=== PATIENT | female | born 1990 | race Caucasian/White ===

== ENCOUNTER 2016-07-27 14:03 | Emergency (ER) | payer SELFPAY ==
--- NOTE | 2016-07-27 16:12 | UC ---
Complaint Female HPI - HPI Summary HPI Summary: patient states that thursday she worked 12 straight hours and did not urinate the entire time, when she got home she voided and there was alot of blood. since then she has had burning with urination. sometimes there is visible blood sometimes not. no other symtpoms, denies fever or flank pain. - History Of Current Complaint Chief Complaint: [facility] Stated Complaint: URINARY Time Seen by Provider: 07/27/16 15:44 Hx Obtained From: Patient Hx Last Menstrual Period: UNKNOWN, POSSIBLY MORE THAN A MONTH AGO. Onset/Duration: Sudden Onset, Lasting Days Timing: Intermittent Severity Currently: Moderate Character: Dull, Burning Aggravating Factor(s): Urination - Risk Factors Ectopic Risk Factor: Negative Ovarian Torsion Risk Factor: Negative - Allergies/Home Medications Allergies/Adverse Reactions: Allergies Allergy/AdvReac Type Severity Reaction Status Date / Time Amoxicillin Allergy Unknown Verified 07/27/16 16:03 Reaction Details Clavulanic Acid Allergy Unknown Verified 07/27/16 16:03 [From Augmentin] Reaction Details PMH/Surg Hx/FS Hx/Imm Hx Previously Healthy: Yes - Surgical History Surgical History: Yes Surgery Procedure, Year, and Place: EAR TUBES - Family History Known Family History: Negative: Hypertension - Social History Alcohol Use: Daily Substance Use Type: Marijuana Smoking Status (MU): Never Smoked Tobacco Review of Systems Constitutional: Negative Skin: Negative Eyes: Negative ENT: Negative Respiratory: Negative Cardiovascular: Negative Gastrointestinal: Negative Genitourinary: Dysuria, Hematuria Motor: Negative Neurovascular: Negative Musculoskeletal: Negative Neurological: Negative Psychological: Negative All Other Systems Reviewed And Are Negative: Yes Physical Exam Triage Information Reviewed: Yes Appearance: Well-Appearing, Well-Nourished, Pain Distress Vital Signs: Initial Vital Signs Temp 98.4 F 07/27/16 15:44 Pulse 78 07/27/16 15:44 Resp 16 07/27/16 15:44 BP 122/82 07/27/16 15:44 Pulse Ox 100 07/27/16 15:44 Vital Signs Reviewed: Yes Eye Exam: Normal Eyes: Positive: Conjunctiva Clear ENT Exam: Normal ENT: Positive: Normal ENT inspection, Hearing grossly normal, Pharynx normal, TMs normal Dental Exam: Normal Neck exam: Normal Neck: Positive: Supple, Nontender, No Lymphadenopathy Respiratory Exam: Normal Respiratory: Positive: Chest non-tender, Lungs clear, Normal breath sounds Cardiovascular Exam: Normal Cardiovascular: Positive: RRR, No Murmur, Pulses Normal Abdominal Exam: Normal Abdomen Description: Positive: Nontender, No Organomegaly, Soft - neg cva tenderness, Bowel Sounds: Positive: Present Musculoskeletal Exam: Normal Musculoskeletal: Positive: Strength Intact, ROM Intact, No Edema Neurological Exam: Normal Psychological Exam: Normal Skin Exam: Normal Complaint Female Dx - Course Course Of Treatment: hx obtained, exam performed. meds reviewed, UA positive sent for culture. treated with keflex. - Differential Dx/Diagnosis Differential Diagnosis/HQI/PQRI: Pelvic Inflammatory Disease, Ureteral Stone, Urinary Tract Infection Provider Diagnoses: UTI. hematuria Discharge - Discharge Plan Condition: Stable Disposition: HOME Prescriptions: Cephalexin CAP* [Keflex CAP*] 500 mg PO BID #14 cap Patient Education Materials: Urinary Tract Infection in Women (ED) Additional Instructions: 1. take the medication as prescribed. Increase your fluid intake. Use th pyridium for the next two days.
== END 2016-07-27 16:25 | disposition home or self-care (01) ==
LOC: EDBD → UCCORT 14:03
DX: N39.0 Urinary tract infection, site not specified (principal); R31.9 Hematuria, unspecified; Z88.1 Allergy status to other antibiotic agents
CPT/HCPCS: 81003; 87086; 99202; G0463

== ENCOUNTER 2018-03-08 17:53 | Emergency (ER) | payer OTHER ==
[2018-03-08 18:10] VITALS: BP 113/89
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
== END 2018-03-08 20:20 | disposition home or self-care (01) ==
LOC: UCCORT 17:53
DX: S09.90XA Unspecified injury of head, initial encounter (principal); S16.1XXA Strain of muscle, fascia and tendon at neck level, initial encounter; V57.1XXA Passenger in pick-up truck or van injured in collision with fixed or stationary object in nontraffic accident, initial encounter; Y92.481 Parking lot as the place of occurrence of the external cause; Z88.8 Allergy status to other drugs, medicaments and biological substances; Z88.0 Allergy status to penicillin
CPT/HCPCS: 70450; 72125; 99211; G0463